=== PATIENT | female | born 1985 | race African-American/Black ===

== ENCOUNTER 2022-10-15 13:03 | Emergency (ER) | payer OTHER ==
[~2022-10-15] VITALS: Ht 167.6 cm; Wt 81.0 kg
[2022-10-15 13:30] VITALS: BP 144/89
[2022-10-15] MEDS ORDERED: LEVETIRACETAM 1000MG PREMIX 100 ML IV ONE (13:30)
[2022-10-15 14:10] LABS: BASOPHILS % 0.8 % (0.0-2.0); EOSINOPHILS % 0.1 % (0.0-5.0); HEMATOCRIT. 38.4 % (36.0-48.0); HEMOGLOBIN. 12.8 g/dL (12.0-16.0); LYMPHOCYTES % 60.9 % (20.0-50.0); MEAN CORPUSCULAR HEMOGLOBIN 30.9 pg (28.0-32.0); MEAN CORPUSCULAR VOLUME 92.6 fL (81.0-99.0); MEAN PLATELET VOLUME 8.1 fl (7.4-10.4); NEUTROPHILS % 31.2 % (40.0-76.0); PLATELET 244 x1000/uL (130-400); RED BLOOD CELL COUNT 4.14 mill/uL (4.2-5.4); RED CELL DISTRIBUTION WIDTH 17.1 % (11.6-14.6)
[2022-10-15 14:20] LABS: CHLORIDE 107 mEq/L (98-107)
[2022-10-15 14:22] LABS: HCG SCREEN NEGATIVE
[2022-10-15] MEDS ORDERED: LORAZEPAM 2MG/ML CPJ IV ONE (14:45)
[2022-10-15 14:52] LABS: ETHANOL BLOOD 433 mg/dL
== END 2022-10-15 15:30 | disposition home or self-care (01) ==
LOC: ER 13:03
DX: F10.129 Alcohol abuse with intoxication, unspecified (principal); R56.9 Unspecified convulsions; Y90.8 Blood alcohol level of 240 mg/100 ml or more
CPT/HCPCS: 36415; 80053; 80320; 84703; 85025; 93005; 96365; 96375; 99284; J1953; J2060; G0480

== ENCOUNTER 2024-03-09 14:04 | Emergency (ER) | payer OTHER ==
[2024-03-09] MEDS: SODIUM CHLORIDE 0.9% 1,000 ML IV ONE (14:15)
[2024-03-09] MEDS: LORAZEPAM 2MG/ML INJ IM ONE (14:44)
[2024-03-09] MEDS: HALOPERIDOL LACTATE 5MG/ML VIAL IM ONE (14:44)
[2024-03-09 15:41] LABS: EOSINOPHILS % 0.3 % (0.0-5.0); HEMATOCRIT. 37.4 % (36.0-48.0); HEMOGLOBIN. 12.3 g/dL (12.0-16.0); LYMPHOCYTES % 67.5 % (20.0-50.0); MEAN CORPUSCULAR HEMOGLOBIN 28.7 pg (28.0-32.0); MEAN CORPUSCULAR VOLUME 87.1 fL (81.0-99.0); MEAN PLATELET VOLUME 7.9 fl (7.4-10.4); MONOCYTES % 8.4 % (2.0-8.0); NEUTROPHILS % 22.8 % (40.0-76.0); PLATELET 251 x1000/uL (130-400); RED BLOOD CELL COUNT 4.29 mill/uL (4.2-5.4); RED CELL DISTRIBUTION WIDTH 15.6 % (11.6-14.6)
[2024-03-09 15:49] LABS: CHLORIDE 106 mEq/L (98-107); POTASSIUM 3.5 mEq/L (3.5-5.1); SODIUM 144 mEq/L (136-145)
[2024-03-09 15:50] LABS: CALCIUM 8.5 mg/dL (8.7-10.4); CARBON DIOXIDE 33 mEq/L (21-32)
[2024-03-09 15:55] LABS: GLUCOSE 106 mg/dL (70-105); UREA NITROGEN BLOOD 7 mg/dL (9-23)
[2024-03-09 15:57] LABS: CREATINE KINASE 245 IU/L (34-145)
[2024-03-09 16:05] LABS: ETHANOL BLOOD 399 mg/dL (<10)
[2024-03-09] MEDS: DIPHENHYDRAMINE 50MG/ML VIAL IM PRN (16:26)
[2024-03-09 17:01] LABS: CLARITY URINE CLEAR (CLEAR); COLOR URINE YELLOW (YELLOW); GLUCOSE URINE NEGATIVE (NEGATIVE); KETONES URINE NEGATIVE (NEGATIVE); LEUKOCYTE ESTERASE URINE NEGATIVE (NEGATIVE); NITRITE URINE NEGATIVE (NEGATIVE); OCCULT BLOOD URINE NEGATIVE (NEGATIVE); PH URINE 6.5 (4.5-8.0); PROTEIN URINE TRACE (NEGATIVE); SPECIFIC GRAVITY URINE 1.008 (1.005-1.030); UROBILINOGEN URINE 0.2 E.U./dL (0.2-1.0)
[2024-03-09 17:10] LABS: *AMPHETAMINES SCREEN URINE NEGATIVE (NEGATIVE); *BENZODIAZEPINES SCREEN URINE PRESUMPTIVE POSITIVE (NEGATIVE)
[2024-03-09 17:11] LABS: *BARBITURATES SCREEN URINE NEGATIVE (NEGATIVE); *COCAINE SCREEN URINE NEGATIVE (NEGATIVE); CANNABINOID URINE SCREEN NEGATIVE (NEGATIVE); ECSTASY MDMA SCREEN URINE NEGATIVE (NEGATIVE); METHADONE URINE SCREEN NEGATIVE (NEGATIVE); OPIATES URINE SCREEN NEGATIVE (NEGATIVE); PHENCYCLIDINE URINE SCREEN NEGATIVE (NEGATIVE)
[2024-03-09 17:54] LABS: BACTERIA URINE 1+; RBC URINE 0-2 /hpf (0-2); SQUAMOUS EPITHELIAL CELL URINE FEW /lpf (RARE/1+); WBC URINE 0-2 /hpf (0-2)
[2024-03-09 18:02] LABS: ACETAMINOPHEN < 2 ug/mL (10-30); ALANINE AMINOTRANSFERASE 25 IU/L (10-49); ALBUMIN 4.3 g/dL (3.2-4.8); ASPARTATE AMINOTRANSFERASE 41 IU/L (<34); BILIRUBIN DIRECT 0.2 mg/dL (<=3.0)
[2024-03-09 18:03] LABS: BILIRUBIN TOTAL 0.6 mg/dL (0.1-1.0)
[2024-03-09 19:49] LABS: HCG SCREEN NEGATIVE
[2024-03-10 13:53] VITALS: BP 112/63; PULSE 79; RESP 17; TEMP 37.16964; O2SAT 99
== END 2024-03-10 13:55 | disposition home or self-care (01) ==
LOC: ER 14:04
DX: F10.129 Alcohol abuse with intoxication, unspecified (principal); F41.9 Anxiety disorder, unspecified; F15.90 Other stimulant use, unspecified, uncomplicated; Z20.822 Contact with and (suspected) exposure to COVID-19; Y90.8 Blood alcohol level of 240 mg/100 ml or more
CPT/HCPCS: 80076; 80305; 80048; 81003; 80307; 80329; 80320; 82550; 84703; 85025; 36415; 93005; 96361 ×2; 96372; 99285; 87426; 96360; J1200; J1630; J2060; J7030; Z7610 ×2; G0480

== ENCOUNTER 2024-03-11 11:13 | Emergency (ER) | payer OTHER ==
[~2024-03-11] VITALS: Ht 165.1 cm; Wt 70.0 kg
[2024-03-11 11:16] VITALS: BP 120/87; PULSE 97; RESP 16; TEMP 97.7; O2SAT 98
== END 2024-03-11 11:55 | disposition left against medical advice (07) ==
LOC: ER 11:13
DX: F10.129 Alcohol abuse with intoxication, unspecified (principal); Z53.21 Procedure and treatment not carried out due to patient leaving prior to being seen by health care provider; Y90.9 Presence of alcohol in blood, level not specified
CPT/HCPCS: 99283